=== PATIENT | female | born 1945 | race Caucasian/White ===

== ENCOUNTER → 2017-08-27 16:41 | Outpatient (CLI) | payer MEDICARE | END | disposition home or self-care (01) | LOC: D.MAMMO 07-24 13:00 | DX: C77.3 Secondary and unspecified malignant neoplasm of axilla and upper limb lymph nodes (principal); C50.912 Malignant neoplasm of unspecified site of left female breast ==

== ENCOUNTER → 2018-09-30 08:19 | Outpatient (CLI) | payer MEDICARE, BC | END | disposition home or self-care (01) | LOC: D.RAD 08:19 | PROVIDERS: ATTEND Family Medicine | DX: R13.10 Dysphagia, unspecified (principal) ==

== ENCOUNTER 2018-11-26 11:46 | Day surgery (SDC) | payer MEDICARE, BC ==
[~2018-11-26] VITALS: Ht 165.1 cm; Wt 66.8 kg
[2018-11-26 12:08] LABS: BASOPHILS 0.3 % (0-2); EOSINOPHILS 1.2 % (0-7); HEMATOCRIT 42.2 % (36.0-48.0); HEMOGLOBIN 13.9 g/dL (12-16); IMMATURE GRANULOCYTES 0.2 % (0-5); LYMPHOCYTES 8.9 % (15-50); MCH 27.5 pg (26.0-34.0); MCHC 32.9 g/dL (31.0-37.0); MCV 83.4 fL (80.0-100.0); MEAN PLATELET VOLUME 9.2 fL (7.4-10.4); MONOCYTES 6.8 % (2-11); NEUTROPHILS 82.6 % (40-80); PLATELET COUNT 247 10x3/uL (130-400); RBC 5.06 10x6/uL (4.00-5.40); RDW 13.7 % (11.5-14.5); WBC 10.5 10x3/uL (4.8-10.8)
[2018-11-26 12:17] LABS: ANION GAP 14.2 mmol/L (8-16); CALCIUM 9.6 mg/dL (8.5-10.1); CARBON DIOXIDE 25.8 mmol/L (21.0-32.0); CREATININE - SERUM 1.2 mg/dL (0.6-1.3)
[2018-11-26 12:44] LABS: APTT 24.5 SECONDS (22.8-39.4); INR 0.96 (0.85-1.17); PROTIME 12.7 SECONDS (11.6-15.0)
[2018-11-26] MEDS ORDERED: ZOCOR20 MG PO (14:19)
[2018-11-26] MEDS ORDERED: NEURONTIN 300300 MG PO (14:19)
[2018-11-26] MEDS ORDERED: GLUCOPHAGE500 MG PO (14:20)
[2018-11-26 14:30] VITALS: BP 132/90; Ht 165.1 cm; Wt 66.8 kg
--- NOTE | 2018-11-26 17:18 | NUR ---
PT EATING/TOLERATING FULL LIQUID DIET. DC INSTRUCTIONS GIVEN TO PT/FRIENDS.
--- NOTE | 2018-11-26 17:39 | NUR ---
DC'D IV CATH FULLY INTACT.
--- NOTE | 2018-11-26 17:41 | NUR ---
PT LEFT UNIT VIA WC AT 1741
--- NOTE | 2018-11-27 16:06 | OP ---
PATIENT NAME: WARREN QUINTERO MEDICAL RECORD: [id number] :47 LOCATION:D.OPS ADMISSION DATE: SURGEON: JEZ ROCHA MD DATE OF OPERATION: 11/26/2018 PREOPERATIVE DIAGNOSES: 1. Dysphagia. 2. Desires screening colonoscopy. POSTOPERATIVE DIAGNOSES: 1. Dysphagia. 2. Desires screening colonoscopy. 3. Type 1 paraesophageal hernia. 4. Two semi-pedunculated gastric polyps, both less than 1.5 cm. 5. Suboptimal colonic prep. PROCEDURES: 1. Esophagogastroduodenoscopy with antral biopsies. 2. Gastric hot polypectomies times 2. 3. Endoscopic balloon dilation to 60-Sudanese. 4. Total colonoscopy to cecum. SURGEON: Jez Rocha MD RECORDS OFFICER: None. BLOOD LOSS: Minimal. ANESTHESIA: IV sedation. COMPLICATIONS: None. The risks, possible complications, and alternatives to the procedures were explained to the patient. She elects to proceed. The discussion specifically included, but was not limited to, bleeding requiring emergency reoperation; infection; endoscopic perforation; and possible need for additional operative procedures in the future or endoscopic procedures. OPERATIVE COURSE: The patient was conveyed to the endoscopy suite electively on 11/26/2018. IV sedation was induced by the anesthesia staff. A bite block was inserted. A gastroscope was inserted into the mouth. It was advanced easily into the hypopharynx. The esophagus was easily intubated as were the stomach and the duodenum. Upon withdrawal, retroflexed and angulus views were obtained. Antral biopsies were obtained. Two gastric hot biopsy forceps polypectomies were performed. I then straightened the endoscope. I advanced a shegkni-aet-[id number] balloon. I then sequentially dilated the esophagus to 60-Sudanese. I removed the gastroscope and balloon dilator. I then re-endoscoped the patient's esophagus and stomach. The endoscope was then withdrawn under direct vision. The patient was then placed in the Morris position. A digital rectal examination was performed. A colonoscope was inserted through the anus. It was easily advanced to the cecum. The prep was suboptimal. I could only exclude large polyps and obstructing colonic masses. I withdrew the endoscope. I irrigated OPERATIVE REPORT [id number] WARREN QUINTERO and aspirated extensively. I utilized normal imaging as well as narrow band imaging. The pullback was greater than 18-minute pullback. A retroflexed view was obtained in the rectum. I then unretroflexed the scope and removed it under direct vision. I will plan for her next colonoscopy to take place in 10 years unless she develops new symptoms such as bleeding. I have told her that she may require repeat balloon dilations in the future. TRANSINT:[id number] Voice Confirmation ID: [id number] DOCUMENT ID: [id number] 11/27/2018 Edited for contemporary or modern dancer error, dmm. JEZ ROCHA MD at 1606 CC: MT MORA MD [id number] DICTATION DATE: 11/26/18 1736 CUFF SETTER: 11/26/18 2248 [facility] 11/26/[address] [facility] [address] [place] [address]
== END 2018-11-26 17:41 | disposition home or self-care (01) ==
LOC: D.OPS 11:46
PROVIDERS: Anesthesiology; ATTEND Surgery
DX: Z12.11 Encounter for screening for malignant neoplasm of colon (principal); K44.9 Diaphragmatic hernia without obstruction or gangrene; K31.7 Polyp of stomach and duodenum; Z01.812 Encounter for preprocedural laboratory examination
CPT/HCPCS: 43239; 43250; 43249; G0121